=== PATIENT | female | born 1965 | race Caucasian/White ===

== ENCOUNTER 2022-06-27 13:24 | Outpatient (CLI) | payer MEDICAID, SELFPAY ==
--- NOTE | 2022-06-27 13:39 | XRR_ITS ---
PROCEDURE INFORMATION: Exam: XR Lumbosacral Spine Exam date and time: 06/27/2022 1:53 PM Age: 57 years old Clinical indication: Patient HX: Low back pain x years. Fell off balcony 2006. Numbness down legs; Additional info: Chronic back pain TECHNIQUE: Imaging protocol: Radiologic exam of the lumbosacral spine. Views: 6 or more views. Including flexion and extension views. COMPARISON: No relevant prior studies available. FINDINGS: Bones/joints: There is slight scoliosis convex to the patient's right. The lumbar curvature is unremarkable on the lateral projection and maintained in flexion and extension. There are moderate degenerative changes L5-S1 with disc space narrowing, endplate sclerosis and facet arthrosis. Remaining disc levels are fairly well maintained. There are no compression fractures. Pedicles are intact. Soft tissues: Unremarkable. XR/XR lumbar spine 6V w f/e [id number] IMPRESSION: Moderate degenerative changes L5-S1. No acute abnormalities.
== END 2022-06-27 13:25 | disposition home or self-care (01) ==
LOC: RAD 13:29
PROVIDERS: PCP Family Medicine; Visit Provider Family Medicine
DX: M54.50 Low back pain, unspecified (principal); G89.29 Other chronic pain; M51.37 Other intervertebral disc degeneration, lumbosacral region
CPT/HCPCS: 72114

== ENCOUNTER 2022-12-06 12:22 | Outpatient (RCR) | payer MEDICAID, SELFPAY | END 2022-12-24 23:59 | disposition home or self-care (01) | LOC: SPT 12:22 | PROVIDERS: PCP Family Medicine; Visit Provider Family Medicine | DX: M54.9 Dorsalgia, unspecified (principal); G89.29 Other chronic pain | CPT/HCPCS: 97110; 97161 ==

== ENCOUNTER 2022-12-25 06:00 | Outpatient (RCR) | payer MEDICAID, SELFPAY | END 2023-01-24 23:59 | disposition home or self-care (01) | LOC: SPT 06:00 | PROVIDERS: PCP Family Medicine; Visit Provider Family Medicine | DX: M54.9 Dorsalgia, unspecified (principal); G89.29 Other chronic pain | CPT/HCPCS: 97110 ==

== ENCOUNTER 2023-01-25 06:00 | Outpatient (RCR) | payer MEDICAID, SELFPAY | END 2023-02-08 23:59 | disposition home or self-care (01) | LOC: SPT 06:00 | PROVIDERS: PCP Family Medicine; Visit Provider Family Medicine | DX: M54.9 Dorsalgia, unspecified (principal); G89.29 Other chronic pain | CPT/HCPCS: 97110 ==

== ENCOUNTER 2023-03-22 10:18 | Outpatient (CLI) | payer MEDICAID, SELFPAY ==
--- NOTE | 2023-03-22 10:20 | MM_ITS ---
WS: [id number] BILATERAL 3D TOMOSYNTHESIS DIGITAL SCREENING MAMMOGRAPHY WITH CAD CLINICAL INFORMATION: SCREENING HISTORY: Screening mammogram. No current complaints. COMPARISON: Baseline TECHNIQUE: Bilateral CC and MLO views. FINDINGS: Scattered fibroglandular densities bilaterally. No suspicious focal mass, asymmetry, calcifications, or architectural distortion. No evidence of malignancy. IMPRESSION: MM/[place] [id number] BI-RADS: 1-Negative FOLLOW UP: 1 Year Follow-up Recommend return to annual screening mammography.
== END 2023-03-22 10:19 | disposition home or self-care (01) ==
LOC: RAD 10:18
PROVIDERS: PCP Family Medicine; Visit Provider Family Medicine
DX: Z12.31 Encounter for screening mammogram for malignant neoplasm of breast (principal)
CPT/HCPCS: 77063; 77067

== ENCOUNTER 2023-03-28 07:38 | Outpatient (CLI) | payer MEDICAID, SELFPAY ==
--- NOTE | 2023-03-28 07:45 | MR_ITS ---
WS: [id number] MRI LUMBAR SPINE NONCONTRAST TECHNIQUE: Sagittal T1, T2 and STIR imaging. Axial T1 and T2 imaging. CLINICAL INFORMATION: CHRONIC BACK PAIN COMPARISON: None. FINDINGS: Mild lumbar curve. No acute compression. No high-grade central canal stenosis. Degenerative disc dise ase L5-S1 with endplate degenerative changes. Slight anterolisthesis L5 on S1. L1-L2: Mild annular bulging. Narrowing of the subarticular recess bilaterally. Mild facet arthropathy . Foramen are patent. L2-L3: Mild annular bulging. Slight impingement on the subarticular recess bilaterally. Mild facet ar thropathy. Foramen are patent. L3-L4: Mild annular bulging. Slight narrowing of the RIGHT subarticular recess. Mild facet arthropath y. Spine canal and foramen are patent. L4-L5: Mild annular bulging. Narrowing of the RIGHT subarticular recess. Spinal canal and foramen are patent. Mild facet arthropathy. L5-S1: Disc space narrowing with degenerative endplate type changes. LEFT eccentric disc bulging with mild LEFT foraminal narrowing. Impingement on the exiting L5 nerve root. Minimal RIGHT foraminal snow rowing. Mild facet arthropathy. Tarlov cysts in the sacrum. Visualized pelvic bony structures: Normal. Paravertebral soft tissues: Normal. IMPRESSION: 1. Mild lumbar curve. No acute compression. No high-grade central canal stenosis. 2. Mild annular bulging L1-L2 and L2-L3 with narrowing of the subarticular recess bilaterally. 3. Mild LEFT L5-S1 foraminal narrowing with slight contact of the exiting LEFT L5 nerve root. Recomm end correlation LEFT L5 nerve root symptoms. 4. Disc space narrowing worse at L5-S1 with endplate degenerative change. Slight anterolisthesis. 5. 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
== END 2023-03-28 07:39 | disposition home or self-care (01) ==
LOC: RAD 07:38
PROVIDERS: PCP Family Medicine; Visit Provider Family Medicine
DX: M51.36 Other intervertebral disc degeneration, lumbar region (principal); M48.07 Spinal stenosis, lumbosacral region; M48.02 Spinal stenosis, cervical region
CPT/HCPCS: 72148

== ENCOUNTER → 2023-09-13 08:24 | Outpatient (CLI) | payer MEDICAID, SELFPAY ==
--- NOTE | 2023-09-13 08:34 | CT_ITS ---
WS: [id number] LDCT LUNG CANCER SCREENING TECHNIQUE: Noncontrast CT of the chest with coronal and sagittal reformatted images. CLINICAL INFORMATION: SMOKER GREATER THAN 30 PACK YEARS COMPARISON: None. DLP: 45.81 mGy.cm DIvol: Mean CTDIvol: 0.80 (mGy) All CT scans at [facility] use at least one of these dose optimization techniques: automat ed exposure control; mA and/or kV adjustment per patient size (includes targeted exams where dose is matched to clinical indication); or iterative reconstruction. FINDINGS: Tiny noncalcified nodule RIGHT middle lobe along the fissure. Small pleural nodule along th e RIGHT major fissure. Small pleural nodule in the RIGHT minor fissure. Noncalcified nodule LEFT lowe r lobe measuring 4 mm. RIGHT lower lobe nodule posterior medially measuring 7 mm. Aortic calcification. No mediastinal or hilar lymphadenopathy. Mild coronary calcification. No axilla ry lymphadenopathy. Small LEFT adrenal nodule likely adenoma measuring 12 mm. RIGHT adrenal gland is normal. Cholecystect brandi. Normal noncontrast spleen. Normal GE junction. Moderate thoracic kyphosis with anterior wedging in the upper thoracic spine. CT/CT lung screening [id number] IMPRESSION: LUNG-RADS: 2-Benign Appearance or Behavior FOLLOW UP: 12 Month: Continue annual screening with LDCT
== END | disposition home or self-care (01) ==
LOC: RAD 08:24
PROVIDERS: PCP Family Medicine; Visit Provider Family Medicine
DX: Z12.2 Encounter for screening for malignant neoplasm of respiratory organs (principal); F17.210 Nicotine dependence, cigarettes, uncomplicated; R91.8 Other nonspecific abnormal finding of lung field; I70.0 Atherosclerosis of aorta; E27.9 Disorder of adrenal gland, unspecified; Z90.49 Acquired absence of other specified parts of digestive tract; M40.204 Unspecified kyphosis, thoracic region
CPT/HCPCS: 71271

== ENCOUNTER → 2024-01-18 14:52 | Outpatient (BNVA) | payer MEDICAID, SELFPAY | PROVIDERS: PCP Family Medicine; Visit Provider Orthopaedic Surgery | DX: M54.9 Dorsalgia, unspecified (principal) | CPT/HCPCS: 72110 ==

== ENCOUNTER 2024-01-22 12:39 | Outpatient (CLI) | payer MEDICAID, SELFPAY ==
[2024-01-22 13:11] LABS: Basophils % 0.6 %; Eosinophils # 0.2 10^3/uL (0.0-0.8); Eosinophils % 3.1 %; Hematocrit 43.4 % (36-47); Lymphocytes # 1.4 10^3/uL (0.8-4.8); Lymphocytes % 28.7 %; Mean Corpuscular HGB Conc 32.7 g/dL (30-55); Mean Corpuscular Hemoglobin 31.5 pg (27-33); Mean Corpuscular Volume 96.2 fl (85-98); Mean Platelet Volume 9.1 fL (7.4-10.4); Monocytes # 0.5 10^3/uL (0.2-0.9); Monocytes % 9.6 %; Neutrophils # 2.85 10^3/uL (1.8-7.7); Nucleated Red Blood Cells % 0 %; Platelet Count 352 10^3/cmm (157-399); Red Blood Count 4.51 10^6/uL (3.85-5.65); White Blood Count 4.91 10^3/uL (3.29-11.43)
[2024-01-22 13:11] LABS: Bilirubin Urine Negative (Negative); Blood Urine Negative (Negative); Glucose Urine UA Negative (Normal); Ketones Urine Negative (Negative); Leukocyte Esterase Urine Negative (Negative); Nitrate Urine Negative (Negative); Protein Urine Negative (Negative); Urine Appearance Cloudy (CLEAR); Urine Color Yellow (Yellow)
[2024-01-22 13:30] LABS: Alanine Aminotransferase 51 U/L (0-33); Albumin Level 3.8 g/dL (3.5-5.2); Alkaline Phosphatase 156 U/L (35-105); Aspartate Amino Transferase 16 U/L (0-32); Blood Urea Nitrogen 13 mg/dL (6-20); Calcium 9.3 mg/dL (8.5-10.5); Carbon Dioxide 25 mmol/L (22-29); Chloride 102 mmol/L (98-107); Globulin 3.5 g/dL (1.3-4.6); Glomerular Filtration Rate 127.2 mL/min (90-130); Glucose 106 mg/dL (65-115); Osmolality Calculated 281 mOsm/kg (285-295); Sodium 135 mmol/L (136-145); Total Bilirubin 0.4 mg/dL (0.15-1.2); Total Protein 7.3 g/dL (6.6-8.7)
[2024-01-22 13:32] LABS: Add Urine Microscopic? YES; UA Manual Slide Review YES; UA Slide Review UA Slide Review Perf
[2024-01-22 13:33] LABS: Add Urine Culture? No; Bacteria Urine 1+ /hpf; RBC Urine RARE /hpf (0-2); Squamous Epithelial Cell Urine 15-25 /hpf (0-5)
== END 2024-01-22 12:40 | disposition home or self-care (01) ==
PROVIDERS: PCP Family Medicine; Visit Provider Orthopaedic Surgery
DX: M54.9 Dorsalgia, unspecified (principal); M48.062 Spinal stenosis, lumbar region with neurogenic claudication
CPT/HCPCS: 36415; 80053; 81001; 85025

== ENCOUNTER → 2024-01-26 10:03 | Outpatient (BNVA) | payer MEDICAID, SELFPAY | PROVIDERS: PCP Family Medicine; Visit Provider Family Medicine | DX: Z01.818 Encounter for other preprocedural examination (principal) | CPT/HCPCS: 81003 ==

== ENCOUNTER 2024-03-15 05:33 | Day surgery (SDC) | payer MEDICAID, SELFPAY ==
[2024-03-15] VITALS (11 sets, daily range): BP systolic 140–160; BP diastolic 75–99; PULSE 72–82; RESP 14–18; TEMP 36.1–36.5; O2SAT 95–100; BMI 22.8
[2024-03-15] MEDS: sodium chloride 0.9% 1,000 ML 30 ML IV (06:04)
--- NOTE | 2024-03-15 06:25 | W.PM.OPSFHP ---
Same Day Surgery H&P Indication for Procedure/HPI DATE OF PROCEDURE: March 15, 2024 CHIEF COMPLAINT/INDICATIONFOR SURGICAL PROCEDURE: Back and leg pain PREOP DIAGNOSIS: Lumbar stenosis with neurogenic claudication PLANNED PROCEDURE: Operation Date: 03/15/24 07:00 Proposed Procedures p Lumbar Spine Decompression Lumbar Decompression(Not Applicable) - Boston Velásquez DO Medications/Allergies* Home Medications Medication Instructions Recorded Confirmed Type albuterol sulfate 90 mcg/actuation 2 puff inhalation Q6H PRN 01/18/24 03/14/24 History aerosol inhaler Shortness Of Breath amlodipine 5 mg tablet 5 mg PO DAILY 01/18/24 03/14/24 History cyclobenzaprine 5 mg tablet 5 mg PO TID PRN Muscle Spasm 01/18/24 03/14/24 History lidocaine 5 % topical patch 2 patch topical DAILY 01/18/24 03/14/24 History (Lidocan III) losartan 100 mg tablet 100 mg PO DAILY 01/18/24 03/14/24 History sertraline 50 mg tablet 50 mg PO DAILY 01/18/24 03/14/24 History cephalexin 500 mg capsule 500 mg PO BID 03/14/24 03/14/24 History Allergies/Adverse Reactions Allergy/AdvReac Type Severity Reaction Status Date / Time No Known Allergies Allergy Verified 03/15/24 06:06 Current Medications: Generic Name Dose Route Start Last Admin Trade Name Freq PRN Reason Stop Dose Admin Sodium Chloride 1,000 mls @ 30 mls/hr 03/15/24 06:00 03/15/24 06:04 Sodium Chloride 0.9% IV 03/16/24 05:59 30 mls/hr .Q24H ESTEFANIA Administration Pertinent History/Comorbid Conditions* Social History Smoking and tobacco/nicotine status: current every day tobacco/nicotine user Pertinent Exam Findings alert, oriented x 3 and procedure specific exam findings Recommendations Surgery/Procedure today Coding Level of Care Code Acute Code for Chg Fwd
--- NOTE | 2024-03-15 06:31 | P.ANESASSM_ITS ---
Pre-Anesthetic Assessment Height/Weight: Height 5 ft 8 in Weight 150 lb Temp Pulse Resp BP Pulse Ox O2 Del Method 97.7 F 80 18 160/97 100 Room Air 03/15/24 05:52 03/15/24 05:52 03/15/24 05:52 03/15/24 05:52 03/15/24 05:52 03/15/24 06:01 Preop Diagnosis: Lumbar stenosis with neurogenic claudication Operation Date: 03/15/24 07:00 Proposed Procedures p Lumbar Spine Decompression Lumbar Decompression(Not Applicable) - Boston Velásquez, DO Was Beta Liban taken within 24 hours: N/A Was Clonidine taken within 24 hours: N/A Last intake: Intake Last Liquid Date 03/14/24 Last Liquid Time 23:00 Last Solid Date 03/14/24 Last Solid Time 23:00 Social Tobacco and No alcohol Exam alert, oriented x 3, clear to auscultation bilaterally and regular rate & rhythm Airway Submandibular: within normal limits Cervical ROM: within normal limits Mallampati: Class II Comments: Comments: Poor dentition, few teeth left. Denies any loose Anesthetic Plan ASA status: 3 Anesthesia: General Other: No prior issues with with anesthesia NPO since yesterday History of hypertension on amlodipine and losartan. Preop BP 160/97. Patient states that this is about what she runs at baseline Current smoker, COPD. On chronic inhalers Patient states that she is able to perform ADLs Labs 01/22/2024 reviewed acceptable for procedure Plan for GETA Medications/Allergies Home Medications Medication Instructions Recorded Confirmed Last Taken Type albuterol sulfate 90 mcg/actuation 2 puff inhalation Q6H PRN 01/18/24 03/14/24 03/15/24 History aerosol inhaler Shortness Of Breath amlodipine 5 mg tablet 5 mg PO DAILY 01/18/24 03/14/24 03/15/24 History cyclobenzaprine 5 mg tablet 5 mg PO TID PRN Muscle Spasm 01/18/24 03/14/24 03/14/24 History lidocaine 5 % topical patch 2 patch topical DAILY 01/18/24 03/14/24 02/20/24 History (Lidocan III) losartan 100 mg tablet 100 mg PO DAILY 01/18/24 03/14/24 03/14/24 History sertraline 50 mg tablet 50 mg PO DAILY 10/03/14/24 03/14/24 History cephalexin 500 mg capsule 500 mg PO BID 03/14/24 03/14/24 03/14/24 History Allergies Allergy/AdvReac Type Severity Reaction Status Date / Time No Known Allergies Allergy Verified 03/15/24 06:06 Current Medications Generic Name Dose Route Start Last Admin Trade Name Freq PRN Reason Stop Dose Admin Sodium Chloride 1,000 mls @ 30 mls/hr 03/15/24 06:00 03/15/24 06:04 Sodium Chloride 0.9% IV 03/16/24 05:59 30 mls/hr .Q24H ESTEFANIA Administration PFSH Anesthesia Social History Smoking and tobacco/nicotine status: current every day tobacco/nicotine user Data Anesthesia 03/15/24 06:11 Cardiac Studies: 2 No Data to Display
[2024-03-15 06:45] LABS: Blood Urea Nitrogen 16 mg/dL (6-20); Calcium 9.8 mg/dL (8.5-10.5); Carbon Dioxide 24 mmol/L (22-29); Chloride 101 mmol/L (98-107); Glucose 101 mg/dL (65-115); Osmolality Calculated 283 mOsm/kg (285-295); Sodium 136 mmol/L (136-145)
[2024-03-15 06:46] LABS: Anion Gap 15.1 (5-19); Potassium 4.1 mmol/L (3.5-5.1)
[2024-03-15] MEDS: ceFAZolin 2,000 mg SDV 2000 MG IVP (06:53)
[2024-03-15] MEDS: lidocaine-epi 1% 20 mL INJ INJECTION (07:20)
--- NOTE | 2024-03-15 07:49 | PM.OP ---
Operative Report Date of procedure: March 15, 2024 Pre-op diagnosis: Lumbar stenosis with neurogenic claudication Post-op diagnosis: same Procedure done: L4-5 laminectomy with partial facetectomy Surgeon: Boston Velásquez DO Estimated blood loss (mL): 10 Procedure: L4/5 laminectomy with partial facetectomy Patient is brought to the operative suite. After undergoing anesthesia they are placed in the prone position. All areas of impingement are well padded. Patient is then prepped and draped in the normal sterile fashion. A skin incision is made over the L4/5 level. This is confirmed under c-arm guidance. A series of dilators are passed and the tubular retractor is docked on the L4 lamina. A bovie is used to clear the soft tissue off the lamina and the L 4/5 facet joint. A high speed piter is then used to perform the laminectomy and take down the medial aspect of the L 4/5 facet joint. A kerrison rongeure was then used to take down the remaining lamina and smooth the edge of the laminectomy up to the point where the ligamentum flavum attaches. Attention was then brought to the medial aspect of the facet joint. The remaining medial aspect of the superior and inferior aspect of the facet joint were taken down with the kerrison from the pedicle of L4 to L 5. The facet joint had significant hypertrophy. Attention was then brought to the Ligamentum Flavum. The ligament was taken down from the lamina of L4 to L5 and out medially to the remaining facet joint. The ligament was thick. The dura was then exposed. The dura was in good repair. The L4 nerve was then traced with a curette out the L4/5 foramen and found to be adequately decompressed. The L5 nerve was traced with a curette around the L5 pedicle. The lateral recess was opened with a kerrison helping to further decompress the L5 nerve. Wound is then irrigated copiously with saline and surgiflo is used to stop any bleeding. The tubular retractor is removed and the wound is closed with vicryl and monocryl suture. Glue is then used to protect the wound. A sterile dressing is then placed. Patient was then placed in the supine position and transferred to the PACU in stable condition.
--- NOTE | 2024-03-15 07:50 | XR_ITS ---
WS: [id number] C-ARM RADIOGRAPHS LUMBAR SPINE; 2 IMAGES HISTORY: OR PICS COMPARISON: None available. Intraoperative imaging during lumbar fusion. Marker indicates the L5-S1 level. XR/XR lumbar spine 2-3V* [id number] IMPRESSION: Intraoperative imaging during lumbar fusion procedure.
[2024-03-15] MEDS: fentaNYL 50 mcg/mL INJ 2mL IVP (08:08)
--- NOTE | 2024-03-15 09:00 | ANE.PACU2 ---
Inpatient post-anesthesia follow up: Airway intact: Yes Vital signs: Temperature 97.0 F Pulse Rate 72 Respiratory Rate 18 Blood Pressure 151/91 Pulse Oximetry 97 Oxygen Delivery Me thod Room Air Oxygen Flow Rate Fraction of Inspir ed Oxygen Hydration adequate: Yes Nausea and vomiting: No Pain level: 1 Mental status: Baseline
== END 2024-03-15 09:00 | disposition home or self-care (01) ==
PROVIDERS: Student in an Organized Health Care Education/Training Program; PCP Family Medicine; Visit Provider Orthopaedic Surgery
PROC: (CPT 63005; principal; 2024-03-15 07:00)
DX: M48.062 Spinal stenosis, lumbar region with neurogenic claudication (principal); I10 Essential (primary) hypertension; F17.200 Nicotine dependence, unspecified, uncomplicated; J44.9 Chronic obstructive pulmonary disease, unspecified
CPT/HCPCS: 63047; 36415; 72100; 76000; 80048; J0131; J0690; J1100; J2405; J2704; J3010; J3490; J7030

== ENCOUNTER 2024-06-25 11:24 | Outpatient (CLI) | payer MEDICAID, SELFPAY ==
--- NOTE | 2024-06-25 11:45 | MR_ITS ---
WS: [id number] MRI LUMBAR SPINE NONCONTRAST TECHNIQUE: Sagittal T1, T2 and STIR imaging. Axial T1 and T2 imaging. CLINICAL INFORMATION: Back Pain COMPARISON: 2023 FINDINGS: Mild lumbar curve. No acute compression. Slight anterolisthesis L4 on L5. Disc bulging worse at L1-2. Interval LEFT hemilaminectomy L5-S1. L1-L2: Disc bulge with narrowing of the LEFT subarticular recess. Mild LEFT foraminal narrowing. L2-L3: Mild disc bulge with narrowing of the RIGHT greater than LEFT subarticular recess. Mild facet arthropathy. Foramen are patent. L3-L4: Mild annular bulging. Narrowing RIGHT subarticular recess. Spinal canal and foramen are patent. L4-L5: Slight anterolisthesis. Mild annular bulging. Narrowing RIGHT subarticular recess. Mild facet arthropathy. L5-S1: Grade 1 anterolisthesis. Disc osteophyte ridging with mild to moderate LEFT greater than RIGHT foraminal narrowing. Mild facet arthropathy. Visualized pelvic bony structures: Normal. Paravertebral soft tissues: Normal. Tiny renal cysts. MR/MR lumbar spine wo con* [id number] IMPRESSION: 1. LEFT paracentral protrusion L1-2 with narrowing of the LEFT subarticular re cess. This is similar to previous with mild LEFT L1-2 foraminal narrowing. 2. Impingement RIGHT L2-3 subarticular recess and traversing RIGHT L3 nerve ro ot appears stable. 3. Narrowing of the RIGHT L3-4 subarticular recess appears slightly progressed . 4. Annular bulging with slight narrowing of the RIGHT L4-5 subarticular recess appears stable. 5. Mild to moderate LEFT greater than RIGHT L5-S1 foraminal narrowing appears stable. Disc desiccation L5-S1 with slight anterolisthesis. 6. Interval LEFT laminectomy L5-S1.
== END 2024-06-25 11:25 | disposition home or self-care (01) ==
PROVIDERS: PCP Family Medicine; Visit Provider Orthopaedic Surgery
DX: M51.26 Other intervertebral disc displacement, lumbar region (principal); M48.061 Spinal stenosis, lumbar region without neurogenic claudication; R93.7 Abnormal findings on diagnostic imaging of other parts of musculoskeletal system; M51.369 Other intervertebral disc degeneration, lumbar region without mention of lumbar back pain or lower extremity pain; M48.07 Spinal stenosis, lumbosacral region; M51.379 Other intervertebral disc degeneration, lumbosacral region without mention of lumbar back pain or lower extremity pain; Z98.890 Other specified postprocedural states; M43.8X6 Other specified deforming dorsopathies, lumbar region; M47.896 Other spondylosis, lumbar region; M43.17 Spondylolisthesis, lumbosacral region; M25.78 Osteophyte, vertebrae; M47.897 Other spondylosis, lumbosacral region
CPT/HCPCS: 72148

== ENCOUNTER → 2024-12-03 14:18 | Outpatient (BNVA) | payer MEDICARE, MEDICAID, SELFPAY | PROVIDERS: PCP Family Medicine; Visit Provider Anesthesiology Pain Medicine | DX: M47.816 Spondylosis without myelopathy or radiculopathy, lumbar region (principal) | CPT/HCPCS: 64493; 64494; 64495; J3490; J9999 ==

== ENCOUNTER → 2024-12-17 09:03 | Outpatient (BNVA) | payer MEDICARE, SELFPAY | PROVIDERS: PCP Family Medicine; Visit Provider Anesthesiology Pain Medicine | DX: M48.062 Spinal stenosis, lumbar region with neurogenic claudication (principal) | CPT/HCPCS: 99214 ==

== ENCOUNTER 2024-12-25 11:06 | Outpatient (CLI) | payer MEDICARE, SELFPAY ==
--- NOTE | 2024-12-25 11:11 | CT_ITS ---
WS: [id number] LDCT LUNG CANCER SCREENING TECHNIQUE: Noncontrast CT of the chest with coronal and sagittal reformatted images. CLINICAL INFORMATION: NICOTINE DEPENDENCE, CIGARETTES COMPARISON: None. DLP: 44.12 mGy.cm DIvol: Mean CTDIvol: 0.80 (mGy) All CT scans at [facility] use at least one of these dose optimization techniques: automated exposure control; mA and/or kV adjustment per patient size (includes targeted exams where dose is matched to clinical indication); or iterative reconstruction. FINDINGS: Multiple subcentimeter pulmonary nodules are similar in appearance. No new suspicious pulmonary parenchymal opacities. No mediastinal or hilar lymphadenopathy. Tiny noncalcified nodule RIGHT middle lobe along the fissure. Small pleural nodule along the RIGHT major fissure. Small pleural nodule in the RIGHT minor fissure. Noncalcified nodule LEFT lower lobe measuring 4 mm. RIGHT lower lobe nodule posterior medially measuring 7 mm. Aortic calcification. Mild coronary calcification. No axillary lymphadenopathy. Small presumed LEFT adrenal adenoma measuring 12 mm is stable. RIGHT adrenal gland is normal. Cholecystectomy. Normal noncontrast spleen. Normal GE junction. Moderate thoracic kyphosis with anterior wedging in the upper thoracic spine. CT/CT lung screening [id number] IMPRESSION: LUNG-RADS: 2-Benign Appearance or Behavior FOLLOW UP: 12 Month: Continue annual screening with LDCT
== END 2024-12-25 11:07 | disposition home or self-care (01) ==
LOC: RAD 11:09
PROVIDERS: PCP Family Medicine; Visit Provider Family Medicine
DX: Z12.2 Encounter for screening for malignant neoplasm of respiratory organs (principal); F17.210 Nicotine dependence, cigarettes, uncomplicated; Z90.49 Acquired absence of other specified parts of digestive tract; I70.0 Atherosclerosis of aorta; M40.204 Unspecified kyphosis, thoracic region; R91.8 Other nonspecific abnormal finding of lung field
CPT/HCPCS: 71271

== ENCOUNTER → 2025-01-23 09:37 | Outpatient (BNVA) | payer MEDICARE, SELFPAY | PROVIDERS: PCP Family Medicine; Visit Provider Student in an Organized Health Care Education/Training Program | DX: Z12.11 Encounter for screening for malignant neoplasm of colon (principal) | CPT/HCPCS: 99204 ==

== ENCOUNTER → 2025-01-28 14:56 | Outpatient (BNVA) | payer MEDICARE, SELFPAY | PROVIDERS: PCP Family Medicine; Visit Provider Orthopaedic Surgery | DX: M48.062 Spinal stenosis, lumbar region with neurogenic claudication (principal); Z98.890 Other specified postprocedural states | CPT/HCPCS: 99213 ==